=== PATIENT | male | born 1995 | race Caucasian/White ===

== ENCOUNTER 2017-06-26 14:48 | Outpatient (RCR) | payer OTHER | END 2017-06-30 14:51 | disposition still patient (30) | LOC: WSOH 14:48 | DX: M54.5 Low back pain (principal) ==

== ENCOUNTER 2018-02-24 20:05 | Emergency (ER) | payer OTHER | END 2018-02-24 20:23 | disposition left against medical advice (07) | LOC: COL.ER 20:05 | DX: R69 Illness, unspecified (principal) ==

== ENCOUNTER 2019-12-22 10:59 | Emergency (ER) | payer BC ==
[~2019-12-22] VITALS: Ht 182.9 cm; Wt 81.8 kg
[2019-12-22] MEDS ORDERED: PROAIR HFA0.09 MG/AC IH (11:14)
[2019-12-22 11:38] LABS: BASO % 0.3 % (0.0-2.0); EOS % 0.1 % (0-4.0); GRAN # 9.2 (1.4-6.5); GRAN % 88.2 % (42.2-75.2); HEMATOCRIT 40.6 % (42.0-52.0); HEMOGLOBIN 14.1 g/dl (13.5-18.0); LYMPH # 0.4 (1.2-3.4); LYMPH % 4.2 % (20.0-51.0); MEAN CELL VOLUME 91 fl (80.0-100.0); MEAN CORPUSCULAR HEMOGLOBIN 32 pg (27.0-31.0); MEAN CORPUSCULAR HGB CONC 35 g/dl (33.0-37.0); MEAN PLATELET VOLUME 11.1 fl (7.4-10.4); MONO # 0.7 (0.1-0.6); MONO % 6.8 % (1.7-9.3); PLATELET COUNT 146 K/mm3 (130-400); RED BLOOD COUNT 4.44 M/mm3 (4.20-5.60); REDCELL DISTRIBUTION WIDTH-CV 11.7 % (11.5-14.5)
[2019-12-22 11:48] LABS: ALBUMIN 4.3 gm/dL (3.5-5.0); BILIRUBIN,TOTAL 0.8 mg/dL (0.0-1.0); CREATININE, serum 0.95 (0.66-1.25); POTASSIUM 3.3 mmol/L (3.4-5.0); TOTAL PROTEIN 7.2 gm/dL (6.4-8.2)
[2019-12-22 12:20] LABS: COLLECTION METHOD CLEAN CATCH
[2019-12-22 12:26] LABS: MUCOUS Present /lpf; PH 9 (5-8); SQUAMOUS EPITHELIAL None Seen /hpf; URINE APPEARANCE Clear; URINE BACTERIA None Seen /hpf; URINE BILIRUBIN Negative (NEGATIVE); URINE BLOOD Negative (NEGATIVE); URINE COLOR Yellow; URINE GLUCOSE Negative (NEGATIVE); URINE KETONE Trace (NEGATIVE); URINE LEUKOCYTE ESTERASE Negative (NEGATIVE); URINE NITRATE Negative (NEGATIVE); URINE PROTEIN(semi-quant) Negative (NEGATIVE); URINE RBC 0-2 /hpf; URINE UROBILINOGEN Negative (NEGATIVE)
[2019-12-22] MEDS ORDERED: ZOFRAN 4MG T4 MG/TAB PO (13:10)
[2019-12-22 13:19] VITALS: BP 120/53; PULSE 101; TEMP 100.7
== END 2019-12-22 13:25 | disposition home or self-care (01) ==
LOC: COL.ER 10:59
PROVIDERS: Nurse Practitioner Primary Care
DX: J02.9 Acute pharyngitis, unspecified (principal); R50.9 Fever, unspecified; R11.2 Nausea with vomiting, unspecified; R51 Headache; R20.0 Anesthesia of skin; J45.909 Unspecified asthma, uncomplicated; Z20.828 Contact with and (suspected) exposure to other viral communicable diseases
CPT/HCPCS: J2405; J7030